=== PATIENT | female | born 1970 | race Caucasian/White ===

== ENCOUNTER 2017-12-09 16:20 | Observation (INO) | payer BC ==
[2017-12-09] MEDS ORDERED: Sodium Chloride 0.9% 5 ML Syringe FLUSH PRN (16:54)
[2017-12-09] MEDS ORDERED: Ketorolac 30 MG/ML SDV IVPUSH ONE (17:07)
[2017-12-09] MEDS ORDERED: MAGNESIUM SULFATE IV ONE (17:09)
[2017-12-09] MEDS ORDERED: WATER IV ONE (17:09)
[2017-12-09] MEDS: LORazepam 2 MG/ML SDV IV PRN (17:41)
[2017-12-09 17:47] LABS: ANION GAP 9.7 mmol/L (5-15); CHLORIDE,CL 105 mmol/L (98-115); SODIUM,NA 139 mmol/L (136-145)
[2017-12-09] MEDS: Propranolol 60 MG Cap.ER PO SCH (17:55)
[2017-12-09] MEDS ORDERED: Acetaminophen 500 MG Tab PO PRN (19:18)
[2017-12-09] MEDS ORDERED: Cyclobenzaprine 10 MG Tab PO PRN (19:18)
[2017-12-09] MEDS: Ondansetron 4 MG/2 ML SDV IVPUSH SCH ×2 (19:47→22:35)
[2017-12-09] MEDS: Nortriptyline 25 MG Cap PO SCH (21:41)
[2017-12-09] MEDS: Sodium Chloride 0.9% 1,000 ML IV SCH (22:09)
[2017-12-09] MEDS: Ketorolac 30 MG/ML SDV IVPUSH PRN (22:44)
[2017-12-10] MEDS: Ondansetron 4 MG/2 ML SDV IVPUSH SCH ×2 (02:33→06:29)
[2017-12-10] MEDS: Ketorolac 30 MG/ML SDV IVPUSH PRN ×2 (06:34→15:21)
[2017-12-10] MEDS: LORazepam 2 MG/ML SDV IV PRN ×2 (06:37→16:19)
[2017-12-10] MEDS: Venlafaxine 37.5 MG Cap.ER PO SCH (09:05)
[2017-12-10] MEDS: Propranolol 60 MG Cap.ER PO SCH (09:06)
[2017-12-10] MEDS ORDERED: diphenhydrAMINE 50 MG/ML SDV IVPUSH ONE (10:30)
[2017-12-10] MEDS ORDERED: Ondansetron 4 MG/2 ML SDV IVPUSH PRN (10:30)
[2017-12-10] MEDS ORDERED: Dexamethasone 10 MG/ML SDV IVPUSH ONE (10:30)
[2017-12-10] MEDS: Sodium Chloride 0.9% 1,000 ML IV SCH (12:02)
[2017-12-10] MEDS ORDERED: Metoclopramide 10 MG/2 ML SDV IVPUSH ONE ×2 (17:25→17:47)
[2017-12-10] MEDS ORDERED: Dihydroergotamine 1 MG/ML SDV IVPUSH SCH (17:45)
[2017-12-10] MEDS ORDERED: Meperidine PF 50 MG/ML Syringe IM PRN (17:48)
[2017-12-10] MEDS ORDERED: Dihydroergotamine 1 MG/ML SDV IVPUSH PRN (19:00)
[2017-12-10] MEDS: Nortriptyline 25 MG Cap PO SCH (21:04)
[2017-12-11] MEDS: Sodium Chloride 0.9% 1,000 ML IV SCH (00:40)
[2017-12-11] MEDS: LORazepam 2 MG/ML SDV IV PRN ×2 (04:16→08:59)
[2017-12-11] MEDS: Propranolol 60 MG Cap.ER PO SCH (09:05)
[2017-12-11] MEDS: Venlafaxine 37.5 MG Cap.ER PO SCH (09:06)
--- NOTE | 2017-12-11 10:21 | PCM.DCSUM1 ---
Discharge Summary - Hospital Course HPI Initial Comments: 47-year-old female was admitted yesterday into observation status for acute migraine headache. I had seen and evaluated her at the [facility]. Diagnosis: Stroke: No - Discharge Data Discharge Date: 12/11/17 Discharge Disposition: Home, Self-Care 01 Condition: Good - Patient Instructions Diet: Regular Diet as Tolerated Activity: As Tolerated Driving: May Drive Today Showering/Bathing: May Shower Notify Provider of: Increased Pain, Nausea and/or Vomiting Other/Special Instructions: report any worsening headaches - Discharge Plan *PRESCRIPTION DRUG MONITORING PROGRAM REVIEWED*: Not Applicable *COPY OF PRESCRIPTION DRUG MONITORING REPORT IN PATIENT JARRETT: Not Applicable Prescriptions/Med Rec: Dihydroergotamine [Dhe 45] 1 mg SQ Q1H PRN #3 mg PRN Reason: migraine Propranolol [Inderal LA] 60 mg PO DAILY #30 cap.er traZODone HCl [Trazodone HCl] 50 mg PO BEDTIME #30 tablet Home Medications: Home Meds Acetaminophen [Mapap] 1,000 mg PO Q4HR PRN 12/09/17 [History] Cyclobenzaprine [Flexeril] 10 mg PO BEDTIME PRN 12/09/17 [History] Diclofenac 1% Gel 1 - 2 gm TOP BID PRN 12/09/17 [History] LORazepam [Ativan] 0.5 mg PO Q4H PRN 12/09/17 [History] Meloxicam 15 mg PO DAILY 12/09/17 [History] Multivitamin [Multi-Day Vitamins] 1 each PO DAILY 12/09/17 [History] Naratriptan HCl 2.5 mg PO ASDIRECTED PRN 12/09/17 [History] Nortriptyline 25 mg PO BEDTIME 12/09/17 [History] Promethazine [Phenergan] 25 mg PO Q4H PRN 12/09/17 [History] SUMAtriptan [Imitrex] 50 mg PO ASDIRECTED PRN 12/09/17 [History] Venlafaxine HCl [Venlafaxine ER] 37.5 mg PO DAILY 12/09/17 [History] Dihydroergotamine [Dhe 45] 1 mg SQ Q1H PRN #3 mg 12/11/17 [Rx] Propranolol [Inderal LA] 60 mg PO DAILY #30 cap.er 09/21/18 [Rx] traZODone HCl [Trazodone HCl] 50 mg PO BEDTIME #30 tablet 12/11/17 [Rx] Referrals: Patricio Mendes, [employer] [Nurse Practitioner] - 12/16/17 3:00 pm (antime next week with myself or provider of her choice. ) - Discharge Summary/Plan Comment DC Time >30 min.: Yes Discharge Summary/Plan Comment: Final diagnosis Migraine headache Anxiety Insomnia/sleep disturbance Hospital course Patient spent 2 days in observation due to ongoing headache. Multiple medication treatments/regimens were attempted including steroids, antiasthmatics , NSAIDs however it appeared DHE did seem to break her headache for a few hours. She had a normal neurological exam and a subsequent CT was normal. Was given medications for her anxiety as she did have significant anxiety while in the hospital--mainly due to previous experience with her mother's approximate [address] [facility]. She slowly tolerated her diet however she did have periodic nausea and vomiting. No fever vital signs were stable. Lungs were clear CV regular rate and rhythm on exam. No neurological deficit. BMP unremarkable, Propanolol was started on admission. Patient was educated extensively regarding this medications side effects and likely would help her with her migraine prophylactically Medication changes/adjustments on discharge Trazodone 50 mg daily at bedtime when necessary for sleep Dihydroergotamine 1 mg subcutaneous to 3 doses per 24 hours. Inderal 60 mg LA daily Disposition She will be discharged from the hospital, she feels ready to be discharge, much improved in her headache. I will see her in the [facility]. Report worsening headache. Referral She has upcoming neurology appointment - General Info Functional Status: Reports: Pain Controlled - Review of Systems General: Denies: Fever, Weakness Pulmonary: Reports: No Symptoms Cardiovascular: Reports: No Symptoms Gastrointestinal: Reports: Other (Mild nausea about an hour after she ate breakfast) Genitourinary: Reports: No Symptoms Neurological: Denies: Headache Psychiatric: Reports: Anxiety - Patient Data Vitals - Most Recent: Last Vital Signs Temp 97.9 F 12/11/17 06:11 Pulse 73 12/11/17 09:05 Resp 16 12/11/17 06:11 BP 132/73 12/11/17 09:05 Pulse Ox 96 12/11/17 06:11 Weight - Most Recent: 211 lb I&O - Last 24 hours: Intake & Output 12/10/17 12/11/17 12/11/17 22:59 06:59 14:59 Intake Total 1296 2726 Balance 1296 2726 Med Orders - Current: Current Medications Acetaminophen (Tylenol Extra Strength) 1,000 mg PO Q4HR PRN PRN Reason: Headache Last Admin: 12/10/17 02:41 Dose: 1,000 mg Cyclobenzaprine HCl (Flexeril) 10 mg PO BEDTIME PRN PRN Reason: Muscle Spasm Dihydroergotamine Mesylate (Dhe 45) 1 mg IVPUSH Q1H PRN PRN Reason: Other Last Admin: 12/11/17 04:08 Dose: 1 mg Sodium Chloride (Normal Saline) 1,000 mls @ 80 mls/hr IV ASDIRECTED [facility] Last Admin: 12/11/17 00:40 Dose: 80 mls/hr Ketorolac Tromethamine (Toradol) 30 mg IVPUSH Q6H PRN PRN Reason: Pain (moderate 4-6) Last Admin: 12/10/17 15:21 Dose: 30 mg Lorazepam (Ativan) 0.5 mg IV Q6H PRN PRN Reason: Nausea/Vomiting Last Admin: 12/11/17 08:59 Dose: 0.5 mg Meperidine HCl (Demerol) 50 mg IM ONETIME PRN PRN Reason: Other Nortriptyline HCl (Nortriptyline) 25 mg PO BEDTIME [facility] Last Admin: 12/10/17 21:04 Dose: Not Given Ondansetron HCl (Zofran) 4 mg IVPUSH Q4H PRN PRN Reason: Nausea/Vomiting Last Admin: 12/11/17 09:53 Dose: 4 mg Propranolol HCl (Inderal La) 60 mg PO DAILY [facility] Last Admin: 12/11/17 09:05 Dose: 60 mg Sodium Chloride (Syrex Flush) 5 ml FLUSH Q8HR PRN PRN Reason: Keep Vein Open Venlafaxine HCl (Effexor Xr) 37.5 mg PO DAILY [facility] Last Admin: 12/11/17 09:06 Dose: 37.5 mg Discontinued Medications Dexamethasone (Dexamethasone) 8 mg IVPUSH ONETIME ONE Stop: 12/10/17 10:31 Last Admin: 12/10/17 11:20 Dose: 8 mg Dihydroergotamine Mesylate (Dhe 45) 1 mg IVPUSH Q1H [facility] Last Admin: 12/10/17 17:19 Dose: 1 mg Diphenhydramine HCl (Benadryl) 25 mg IVPUSH ONETIME ONE Stop: 12/10/17 10:31 Last Admin: 12/10/17 11:21 Dose: 25 mg Sodium Chloride (Normal Saline) 700 mls @ 999 mls/hr IV ONETIME ONE Stop: 12/09/17 17:42 Last Admin: 12/09/17 17:44 Dose: 999 mls/hr Magnesium Sulfate 4 gm/ Premix 0 mls @ 25 mls/hr IV ONETIME ONE Stop: 12/09/17 17:10 Last Admin: 12/09/17 17:44 Dose: 25 mls/hr Ketorolac Tromethamine (Toradol) 30 mg IVPUSH ONETIME ONE Stop: 12/09/17 17:08 Last Admin: 12/09/17 17:43 Dose: 30 mg Metoclopramide HCl (Reglan) 10 mg IVPUSH ONETIME ONE Last Admin: 12/10/17 18:37 Dose: Not Given Metoclopramide HCl (Reglan) 10 mg IVPUSH ONETIME ONE Stop: 12/10/17 17:48 Last Admin: 12/10/17 17:25 Dose: 10 mg Ondansetron HCl (Zofran) 4 mg IVPUSH Q4H [facility] Last Admin: 12/10/17 06:29 Dose: 4 mg - Exam Quality Assessment: Denies: Supplemental Oxygen General: Reports: Alert, Oriented, Mild Distress Neck: Reports: Supple Lungs: Reports: Normal Respiratory Effort Cardiovascular: Reports: Regular Rate, Regular Rhythm Psy/Mental Status: Reports: Anxious
--- NOTE | 2017-12-11 11:09 | PCM.PN ---
- General Info Date of Service: 12/10/17 Functional Status: Denies: Pain Controlled - Review of Systems General: Denies: Malaise, Chills, Appetite HEENT: Reports: Headaches. Denies: Visual Changes Pulmonary: Reports: No Symptoms Cardiovascular: Reports: No Symptoms Gastrointestinal: Reports: Decreased Appetite, Nausea. Denies: Abdominal Pain, Vomiting Genitourinary: Reports: No Symptoms Musculoskeletal: Reports: No Symptoms Skin: Reports: No Symptoms Neurological: Denies: Confusion, Dizziness, Numbness, Seizure, Difficulty Walking, Weakness Psychiatric: Denies: Anxiety - Patient Data Vitals - Most Recent: Last Vital Signs Temp 97.9 F 12/11/17 06:11 Pulse 73 12/11/17 09:05 Resp 16 12/11/17 06:11 BP 132/73 12/11/17 09:05 Pulse Ox 96 12/11/17 06:11 Weight - Most Recent: 211 lb I&O - Last 24 Hours: Intake & Output 12/10/17 12/11/17 12/11/17 22:59 06:59 14:59 Intake Total 1296 2726 Balance 1296 2726 Med Orders - Current: Current Medications Acetaminophen (Tylenol Extra Strength) 1,000 mg PO Q4HR PRN PRN Reason: Headache Last Admin: 12/10/17 02:41 Dose: 1,000 mg Cyclobenzaprine HCl (Flexeril) 10 mg PO BEDTIME PRN PRN Reason: Muscle Spasm Dihydroergotamine Mesylate (Dhe 45) 1 mg IVPUSH Q1H PRN PRN Reason: Other Last Admin: 12/11/17 04:08 Dose: 1 mg Sodium Chloride (Normal Saline) 1,000 mls @ 80 mls/hr IV ASDIRECTED [facility] Last Admin: 12/11/17 00:40 Dose: 80 mls/hr Ketorolac Tromethamine (Toradol) 30 mg IVPUSH Q6H PRN PRN Reason: Pain (moderate 4-6) Last Admin: 12/10/17 15:21 Dose: 30 mg Lorazepam (Ativan) 0.5 mg IV Q6H PRN PRN Reason: Nausea/Vomiting Last Admin: 12/11/17 08:59 Dose: 0.5 mg Meperidine HCl (Demerol) 50 mg IM ONETIME PRN PRN Reason: Other Metoclopramide HCl (Reglan) 10 mg IVPUSH ONETIME ONE Stop: 12/11/17 11:01 Nortriptyline HCl (Nortriptyline) 25 mg PO BEDTIME [facility] Last Admin: 12/10/17 21:04 Dose: Not Given Ondansetron HCl (Zofran) 4 mg IVPUSH Q4H PRN PRN Reason: Nausea/Vomiting Last Admin: 12/11/17 09:53 Dose: 4 mg Propranolol HCl (Inderal La) 60 mg PO DAILY [facility] Last Admin: 12/11/17 09:05 Dose: 60 mg Sodium Chloride (Syrex Flush) 5 ml FLUSH Q8HR PRN PRN Reason: Keep Vein Open Venlafaxine HCl (Effexor Xr) 37.5 mg PO DAILY [facility] Last Admin: 12/11/17 09:06 Dose: 37.5 mg Discontinued Medications Dexamethasone (Dexamethasone) 8 mg IVPUSH ONETIME ONE Stop: 12/10/17 10:31 Last Admin: 12/10/17 11:20 Dose: 8 mg Dihydroergotamine Mesylate (Dhe 45) 1 mg IVPUSH Q1H [facility] Last Admin: 12/10/17 17:19 Dose: 1 mg Diphenhydramine HCl (Benadryl) 25 mg IVPUSH ONETIME ONE Stop: 12/10/17 10:31 Last Admin: 12/10/17 11:21 Dose: 25 mg Sodium Chloride (Normal Saline) 700 mls @ 999 mls/hr IV ONETIME ONE Stop: 12/09/17 17:42 Last Admin: 12/09/17 17:44 Dose: 999 mls/hr Magnesium Sulfate 4 gm/ Premix 0 mls @ 25 mls/hr IV ONETIME ONE Stop: 12/09/17 17:10 Last Admin: 12/09/17 17:44 Dose: 25 mls/hr Ketorolac Tromethamine (Toradol) 30 mg IVPUSH ONETIME ONE Stop: 12/09/17 17:08 Last Admin: 12/09/17 17:43 Dose: 30 mg Metoclopramide HCl (Reglan) 10 mg IVPUSH ONETIME ONE Last Admin: 12/10/17 18:37 Dose: Not Given Metoclopramide HCl (Reglan) 10 mg IVPUSH ONETIME ONE Stop: 12/10/17 17:48 Last Admin: 12/10/17 17:25 Dose: 10 mg Ondansetron HCl (Zofran) 4 mg IVPUSH Q4H [facility] Last Admin: 12/10/17 06:29 Dose: 4 mg - Exam Quality Assessment: No: Supplemental Oxygen General: Alert, Oriented, Cooperative, No Acute Distress Neck: Supple Lungs: Clear to Auscultation, Normal Respiratory Effort Cardiovascular: Regular Rate, Regular Rhythm (Female) Exam: Deferred Back Exam: No: CVA Tenderness (L), CVA Tenderness (R) Peripheral Pulses: 2+: Radial (L) Psy/Mental Status: Alert, Normal Affect, Normal Mood - Problem List Review Problem List Initiated/Reviewed/Updated: Yes - My Orders Last 24 Hours: My Active Orders 12/10/17 10:30 Ondansetron [Zofran] 4 mg IVPUSH Q4H PRN 12/10/17 17:48 Meperidine [Demerol] 50 mg IM ONETIME PRN 12/10/17 19:00 Dihydroergotamine [Dhe 45] 1 mg IVPUSH Q1H PRN 12/11/17 09:42 Ready for Discharge [RC] PER UNIT ROUTINE 12/11/17 11:00 Metoclopramide [Reglan] 10 mg IVPUSH ONETIME ONE - Plan Plan:: Brief history, 47-year-old female was admitted yesterday into observation status for acute migraine headache. I had seen and evaluated her at the [facility] when she had came in with significant migraine headache that she had had for several days despite taking maximum dose of Imitrex daily. Has suffered from migraine headaches most of her life and had been on many medication regimens. He feels the triggers that started her migraine headache most likely due to cervical neck pain in which she is taking acupuncture. Impression/plan Migraine headache, will monitor today, NSAIDs, antiemetics, Head CT today, DHE with steroids today. Monitor for any neurological deficit. Monitor vital signs. Anxiety, continue with Ativan Insomnia/sleep disturbance, likely will need improvement upon discharge. May discuss trazodone.
[2017-12-11] MEDS ORDERED: Metoclopramide 10 MG/2 ML SDV IVPUSH ONE (11:10)
== END 2017-12-11 12:13 | disposition home or self-care (01) ==
LOC: KA.MS 16:20
PROVIDERS: ADMIT Nurse Practitioner Family; ATTEND Family Medicine
DX: G43.111 Migraine with aura, intractable, with status migrainosus (principal); E66.9 Obesity, unspecified; Z68.36 Body mass index [BMI] 36.0-36.9, adult; F41.9 Anxiety disorder, unspecified; F33.9 Major depressive disorder, recurrent, unspecified; G47.00 Insomnia, unspecified; Z87.891 Personal history of nicotine dependence; Z79.899 Other long term (current) drug therapy; Z88.5 Allergy status to narcotic agent; Z88.2 Allergy status to sulfonamides
CPT/HCPCS: 36415; 70450; 80048; 96361; 96365; 96375; 96376; A9270-GY; G0378; G0379; J1100; J1110; J1200; J1885; J2060; J2405; J2765; J3475; J7030